=== PATIENT | female | born 2000 | race African-American/Black ===

== ENCOUNTER 2021-01-06 12:31 | Emergency (ER) | payer BC ==
[~2021-01-06] VITALS: Ht 157.5 cm; Wt 81.0 kg
[2021-01-06 12:36] VITALS: BP 122/62
[2021-01-06] MEDS ORDERED: IBUPROFEN 400 MG TABLET. PO ONE (13:00)
[2021-01-06] MEDS ORDERED: ONDANSETRON ODT 4 MG TAB.RAPDIS. PO ONE (13:00)
[2021-01-06 14:16] LABS: BILIRUBIN,URINE NEGATIVE (NEG); CLARITY,URINE CLEAR; COLOR,URINE YELLOW; NITRITE,URINE NEGATIVE (NEG); PH,URINE 5.5 (<5.0-8.0); PROTEIN,URINE 30 mg/dL (NEG-TRACE); UROBILINOGEN,URINE 0.2 mg/dL (0.2 mg/dL)
--- NOTE | 2021-01-06 14:21 | ED.ADGEN ---
Past Medical History Past Medical History: No Pertinent History Past Surgical History: Tonsillectomy Smoking Status: Never Smoker Alcohol Use: Occasionally General Adult EDM: Chief Complaint: MENSTRUAL PAIN/CRAMPS HPI: HPI: Patient is a 20 year old AA female, accompanied by her significant other, who presents to emergency room with complaints of painful menstruation. Patient reports that her menstrual cycle began early this morning. She states she has i rregular menstrual cycles her last period was about 2 months ago. She reports that with the onset of this. She has had nausea, severe cramps, and heavier than usual bleeding. Patient states that she is used 1 pad and 1 tampon since the onset of the cycle. She denies any irregular vaginal discharge, vaginal odor, or cramping prior to the onset of the cycle. Patient denies any dysuria, hematuria, or increased urinary frequency. She denies any fever, vomiting, diarrhea, chest pain, back pain, body aches, decreased smell/taste, or congestion. She currently rates pain a 10 out of 10 on the pain scale, patient reports that she tried taking Midol at home with no relief of her symptoms. Review of Systems: Review of Systems: Complete ROS is negative unless otherwise noted in HPI. Current Medications: Current Medications Medications (Trade) Dose Ordered Sig/Shyanne Start Time Stop Time Status Last Admin Dose Admin Ibuprofen (Motrin) 800 mg 1X ONCE 01/06/21 13:00 01/06/21 13:07 DC 01/06/21 13:20 800 MG Ondansetron HCl (Zofran Odt) 4 mg 1X ONCE 01/06/21 13:00 01/06/21 13:07 DC 01/06/21 13:20 4 MG Allergies: Allergies: Allergies Coded Allergies Type Severity Reaction Last Updated Verified No Known Drug Allergies 01/06/21 No Physical Exam: PE: See Above Constitutional: Well developed, well nourished, no acute distress, non-toxic appearance, appears uncomfortable. [] HENT: Normocephalic, atraumatic, bilateral external ears normal, nose normal. [] Eyes: PERRLA, EOMI, conjunctiva normal, no discharge. [] Neck: Normal range of motion, no stridor. [] Cardiovascular:Heart rate regular rhythm Lungs & Thorax: Respirations even and unlabored, no retractions, no respiratory distress Abdomen: soft, no tenderness, no palpable mass Skin: Warm, dry, no erythema, no rash. [] Extremities: No cyanosis, ROM intact, no edema. [] Neurologic: Alert and oriented X 3, no focal deficits noted. [] Psychologic: Affect normal, judgement normal, mood normal. [] Current Patient Data: Labs: Laboratory Tests Test 01/06/21 12:50 01/06/21 14:00 Urine Collection Type Unknown Urine Color Yellow Urine Clarity Clear Urine pH 5.5 (<5.0-8.0) Urine Specific [place] >=1.030 (1.000-1.030) Urine Protein 30 mg/dL (NEG-TRACE) Urine Glucose (UA) 100 mg/dL (NEG) Urine Ketones (Stick) 40 mg/dL (NEG) Urine Blood Trace (NEG) Urine Nitrite Negative (NEG) Urine Bilirubin Negative (NEG) Urine Urobilinogen Dipstick 0.2 mg/dL (0.2 mg/dL) Urine Leukocyte Esterase Negative (NEG) Urine RBC Occ /HPF (0-2) Urine WBC 11-20 /HPF (0-4) Urine Squamous Epithelial Cells Few /LPF Urine Bacteria Moderate /HPF (0-FEW) Urine Mucus Mod /LPF POC Urine HCG, Qualitative Hcg negative (Negative) Vital Signs: Vital Signs Date Time Temp Pulse Resp B/P (MAP) Pulse Ox O2 Delivery O2 Flow Rate FiO2 01/06/21 12:36 98.2 60 16 122/62 (82) 99 Room Air 98.2 EKG: EKG: [] Heart Score: C/O Chest Pain: No Radiology/Procedures: Radiology/Procedures: [] Course & Med Decision Making: Course & Med Decision Making Pertinent Labs and Imaging studies reviewed. (See chart for details) [] Dragon Disclaimer: Dragon Disclaimer: This electronic medical record was generated, in whole or in part, using a voice recognition dictation system. Departure Departure Impression: Primary Impression: Menstrual pain Additional Impressions: Nausea UTI (urinary tract infection) Disposition: HOME / SELF CARE / HOMELESS Condition: STABLE Referrals: NO PCP (PCP) ERIC MARTI MD, SARASWATHI MD Patient Instructions: Dysmenorrhea, [id number], Nausea, Adult, [id number] Additional Instructions: Fill the prescriptions and use them as directed. I recommend a follow-up with [facility] for further evaluation of your irregular menstrual cycles and painful menstruation. Return to the ER if symptoms worsen or fever develops. Scripts Cephalexin (CEPHALEXIN) 500 Mg Tablet 1 TAB PO BID for 7 Days, #14 TAB 0 Refills Prov: REEMA WIGGINS APRN 01/06/21 Ibuprofen (IBUPROFEN) 800 Mg Tablet 800 MG PO PRN Q6HRS PRN for PAIN for 5 Days, #20 TAB 0 Refills Prov: REEMA WIGGINS APRN 01/06/21 Ondansetron Hcl (ONDANSETRON HCL) 4 Mg Tablet 1 TAB PO PRN Q6HRS PRN for NAUSEA/VOMITING for 3 Days, #10 TAB 0 Refills Prov: REEMA WIGGINS APRN 01/06/21 Problem Qualifiers Additional Impressions: UTI (urinary tract infection) Urinary tract infection type: site unspecified Hematuria presence: without hematuria Qualified Codes: N39.0 - Urinary tract infection, site not specified REEMA WIGGINS APRN Jan 06, 2021 14:21
[2021-01-06] MEDS ORDERED: IBUP-1060 PO (14:27)
[2021-01-06] MEDS ORDERED: ONDA-84 PO (14:27)
[2021-01-06 14:29] LABS: BACTERIA,URINE MODERATE /HPF (0-FEW)
[2021-01-06 14:31] LABS: RBC,URINE OCC /HPF (0-2)
[2021-01-06] MEDS ORDERED: CEPH500T PO (14:39)
== END 2021-01-06 14:52 | disposition home or self-care (01) ==
LOC: ER 12:31
DX: N39.0 Urinary tract infection, site not specified (principal); N94.6 Dysmenorrhea, unspecified
CPT/HCPCS: 81001; 81025; 87086; 99283